=== PATIENT | female | born 1960 | race Caucasian/White ===

== ENCOUNTER 2016-07-29 12:23 | Emergency (ER) | payer SELFPAY ==
[~2016-07-29] VITALS: Ht 170.2 cm; Wt 80.0 kg
[~2016-07-29 12:23] MED LIST: ASPI-515 PO; DIAZ10TA PO; DIAZ10TA4 PO; GABA300C10 PO; INSU100V10; INSU100V8 SQ; METF100010 PO; METH2.5T; MULT-709 PO
[2016-07-29] MEDS ORDERED: ONDANSETRON 2MG/ML, 2ML IVPush ONE (13:00)
[2016-07-29] MEDS ORDERED: SODIUM CHLORIDE FLUSH 10ML SYR IVF ONE (13:00)
[2016-07-29] MEDS ORDERED: SODIUM CHLORIDE 0.9% 1,000ML IVBOLUS ONE ×2 (13:00→15:00)
[2016-07-29 13:02] LABS: PH, VENOUS 7.384 pH (7.320-7.420)
[2016-07-29] MEDS ORDERED: MORPHINE SULFATE 4 MG/ML, 1ML ONE ×2 (13:13→14:21)
[2016-07-29] MEDS ORDERED: ONDANSETRON 2MG/ML, 2ML ONE (13:13)
[2016-07-29 13:16] LABS: ASPARTATE AMINO TRANSFERASE 22 U/L (15-37); BLOOD UREA NITROGEN 38 mg/dL (7-18)
[2016-07-29] MEDS: MORPHINE SULFATE 4 MG/ML, 1ML IVPush PRN ×2 (13:17→14:47)
[2016-07-29] MEDS ORDERED: POTASSIUM CHLORIDE 20 MEQ TAB.ER.PRT PO ONE (15:30)
[2016-07-29 16:33] VITALS: BP 125/68
== END 2016-07-29 17:02 | disposition home or self-care (01) ==
LOC: ED 12:41
DX: L03.115 Cellulitis of right lower limb (principal); E10.65 Type 1 diabetes mellitus with hyperglycemia; E10.42 Type 1 diabetes mellitus with diabetic polyneuropathy; I25.10 Atherosclerotic heart disease of native coronary artery without angina pectoris; I10 Essential (primary) hypertension
CPT/HCPCS: 36415; 70450; 72125; 73630; 80053; 81001; 82010; 82803; 85025; 87077; 87086; 87186; 96361; 96374; 96375; 96376; 99285; J2405; J7030

== ENCOUNTER 2016-09-04 11:34 | Emergency (ER) | payer SELFPAY ==
[~2016-09-04] VITALS: Ht 170.2 cm; Wt 70.0 kg
[2016-09-04] MEDS ORDERED: MORPHINE SULFATE 4 MG/ML, 1ML IVPush PRN (12:30)
[2016-09-04] MEDS ORDERED: SODIUM CHLORIDE 0.9% 1,000ML IVBOLUS ONE (12:30)
[2016-09-04] MEDS ORDERED: ONDANSETRON 2MG/ML, 2ML IVPush ONE (12:30)
[2016-09-04] MEDS ORDERED: SODIUM CHLORIDE FLUSH 10ML SYR IVF ONE (12:30)
[2016-09-04 12:42] LABS: ASPARTATE AMINO TRANSFERASE 10 U/L (15-37); BLOOD UREA NITROGEN 37 mg/dL (7-18)
[2016-09-04 12:48] LABS: IS PT STATUS REG ER OR PRE ER? YES
[2016-09-04] MEDS ORDERED: ONDANSETRON 2MG/ML, 2ML ONE (12:59)
[2016-09-04] MEDS ORDERED: MORPHINE SULFATE 4 MG/ML, 1ML ONE (12:59)
[2016-09-04 14:19] VITALS: BP 137/79
== END 2016-09-04 14:22 | disposition home or self-care (01) ==
LOC: ED 12:14
DX: M25.511 Pain in right shoulder (principal); R07.89 Other chest pain; N30.90 Cystitis, unspecified without hematuria; I10 Essential (primary) hypertension; E11.9 Type 2 diabetes mellitus without complications
CPT/HCPCS: 36415; 74022; 80053; 81001; 83690; 84484; 85025; 87077; 87086; 87147; 87186; 93005; 96361; 96374; 96375; 99285; J2405; J7030

== ENCOUNTER 2016-09-10 10:55 | Inpatient (IN) | payer SELFPAY ==
[~2016-09-10] VITALS: Ht 170.2 cm; Wt 73.3 kg
[2016-09-10] MEDS ORDERED: SODIUM CHLORIDE 0.9% 1,000ML IVBOLUS ONE (12:00)
[2016-09-10] MEDS ORDERED: SODIUM CHLORIDE FLUSH 10ML SYR IVF ONE (12:00)
[2016-09-10 12:03] LABS: ASPARTATE AMINO TRANSFERASE 10 U/L (15-37); BLOOD UREA NITROGEN 34 mg/dL (7-18)
[2016-09-10 12:10] LABS: IS PT STATUS REG ER OR PRE ER? YES
[2016-09-10] MEDS ORDERED: MORPHINE SULFATE 4 MG/ML, 1ML ONE (12:24)
[2016-09-10] MEDS ORDERED: MORPHINE SULFATE 4 MG/ML, 1ML IVPush ONE (13:30)
[2016-09-10] MEDS ORDERED: OMNIPAQUE 350 MG/ML, 100ML BOTTLE ONE (14:17)
[2016-09-10 15:53] VITALS: BP 101/67
== END 2016-09-10 16:40 | disposition left against medical advice (07) | DRG 312 ==
LOC: ED 12:41 → EDIP 14:59 → 5SO 15:45
PROVIDERS: ADMIT Internal Medicine; ATTEND Internal Medicine
DX: R55 Syncope and collapse (principal); E86.0 Dehydration; M25.511 Pain in right shoulder; Z53.21 Procedure and treatment not carried out due to patient leaving prior to being seen by health care provider
CPT/HCPCS: 36415; 71010; 71275; 80053; 81001; 84484; 85025; 85610; 85730; 87086; 93005; 96361; 96374; Q9967; J7030

== ENCOUNTER 2016-09-15 09:51 | Emergency (ER) | payer SELFPAY ==
[~2016-09-15] VITALS: Ht 170.2 cm; Wt 75.0 kg
[2016-09-15 09:59] VITALS: BP 148/75
== END 2016-09-15 10:33 | disposition home or self-care (01) ==
LOC: ED 10:02
DX: S23.3XXA Sprain of ligaments of thoracic spine, initial encounter (principal); E11.9 Type 2 diabetes mellitus without complications; Z95.1 Presence of aortocoronary bypass graft; V43.52XA Car driver injured in collision with other type car in traffic accident, initial encounter; Y93.89 Activity, other specified; Y99.8 Other external cause status; Y92.488 Other paved roadways as the place of occurrence of the external cause
CPT/HCPCS: 99283

== ENCOUNTER 2016-09-23 10:26 | Emergency (ER) | payer OTHER ==
[2016-09-23] MEDS ORDERED: HYDROcodone/APAP 5/325 TABLET ONE (12:48)
[2016-09-23] MEDS ORDERED: HYDROcodone/APAP 5/325 TABLET PO ONE (13:00)
[2016-09-23 13:03] LABS: ASPARTATE AMINO TRANSFERASE 15 U/L (15-37); BLOOD UREA NITROGEN 34 mg/dL (7-18)
[2016-09-23 14:32] VITALS: BP 101/70
== END 2016-09-23 14:34 | disposition home or self-care (01) ==
LOC: ED 13:01
DX: R10.32 Left lower quadrant pain (principal); R10.12 Left upper quadrant pain; N30.00 Acute cystitis without hematuria; I25.10 Atherosclerotic heart disease of native coronary artery without angina pectoris; E11.65 Type 2 diabetes mellitus with hyperglycemia; F17.200 Nicotine dependence, unspecified, uncomplicated; Z95.1 Presence of aortocoronary bypass graft
CPT/HCPCS: 36415; 74022; 80053; 81001; 83605; 83690; 85025; 87086; 93005; 99285

== ENCOUNTER 2016-09-28 09:03 | Emergency (ER) | payer OTHER ==
[~2016-09-28] VITALS: Ht 170.2 cm; Wt 70.0 kg
[2016-09-28] MEDS ORDERED: SODIUM CHLORIDE 0.9% 1,000 ML IV ONE (09:33)
[2016-09-28] MEDS ORDERED: ONDANSETRON 2MG/ML, 2ML IVPush ONE (10:00)
[2016-09-28] MEDS ORDERED: SODIUM CHLORIDE FLUSH 10ML SYR IVF ONE (10:00)
[2016-09-28] MEDS ORDERED: HYDROmorphone 1 MG/ML, 1ML IVPush PRN (10:00)
[2016-09-28 10:03] LABS: HEMATOCRIT 36.5 % (34.6-47.8); HEMOGLOBIN 12.4 g/dL (11.7-16.4); WHITE BLOOD COUNT 8.4 x10^3/uL (3.4-10)
[2016-09-28] MEDS ORDERED: ONDANSETRON 2MG/ML, 2ML ONE (10:09)
[2016-09-28] MEDS ORDERED: HYDROmorphone 1 MG/ML, 1ML ONE (10:09)
[2016-09-28 10:43] LABS: ASPARTATE AMINO TRANSFERASE 13 U/L (15-37); BLOOD UREA NITROGEN 27 mg/dL (7-18)
[2016-09-28 10:48] VITALS: BP 110/89
== END 2016-09-28 12:29 | disposition home or self-care (01) ==
LOC: ED 09:47
DX: G89.29 Other chronic pain (principal); R53.1 Weakness; R26.2 Difficulty in walking, not elsewhere classified; R29.6 Repeated falls; E11.9 Type 2 diabetes mellitus without complications; I25.10 Atherosclerotic heart disease of native coronary artery without angina pectoris
CPT/HCPCS: 36415; 70450; 80053; 82010; 82550; 83605; 85025; 93005; 96361; 96374; 96375; 99285; J1170; J2405; J7030

== ENCOUNTER 2017-02-01 17:00 | Emergency (ER) | payer OTHER ==
[~2017-02-01] VITALS: Ht 170.2 cm; Wt 73.0 kg
[~2017-02-01 17:00] MED LIST changes: -INSU100V10; +INSU100V11
[2017-02-01] MEDS ORDERED: SODIUM CHLORIDE 0.9% 1,000ML IVBOLUS ONE (17:30)
[2017-02-01] MEDS ORDERED: LOPERAMIDE 2 MG CAPSULE PO ONE (17:30)
[2017-02-01] MEDS ORDERED: MAALOX/HYOSCYAMINE/LIDOCAINE 45 ML BTL PO ONE (17:30)
[2017-02-01] MEDS ORDERED: SODIUM CHLORIDE FLUSH 10ML SYR IVF ONE (17:30)
[2017-02-01] MEDS ORDERED: MAALOX/HYOSCYAMINE/LIDOCAINE 45 ML BTL ONE (17:31)
[2017-02-01] MEDS ORDERED: MORPHINE SULFATE 4 MG/ML, 1ML ONE (17:31)
[2017-02-01] MEDS ORDERED: LOPERAMIDE 2 MG CAPSULE ONE ×2 (17:31→17:39)
[2017-02-01] MEDS: MORPHINE SULFATE 4 MG/ML, 1ML IVPush PRN ×2 (17:34→18:20)
[2017-02-01 17:53] LABS: HEMATOCRIT 34.7 % (34.6-47.8); WHITE BLOOD COUNT 9.5 x10^3/uL (3.4-10)
[2017-02-01 18:04] LABS: ASPARTATE AMINO TRANSFERASE 9 U/L (15-37); BLOOD UREA NITROGEN 20 mg/dL (7-18)
[2017-02-01] MEDS ORDERED: morphine SULFATE 10 MG/ML, 1ML ONE (18:16)
[2017-02-01 18:57] VITALS: BP 112/58
[2017-02-01] MEDS ORDERED: OXYcodone/APAP 5/325MG TABLET ONE (19:58)
[2017-02-01] MEDS ORDERED: OXYcodone/APAP 5/325MG TABLET PO ONE (20:00)
== END 2017-02-01 20:19 | disposition home or self-care (01) ==
LOC: ED 19:26
DX: S16.1XXA Strain of muscle, fascia and tendon at neck level, initial encounter (principal); R19.7 Diarrhea, unspecified; I95.9 Hypotension, unspecified; I25.10 Atherosclerotic heart disease of native coronary artery without angina pectoris; E11.42 Type 2 diabetes mellitus with diabetic polyneuropathy
CPT/HCPCS: 36415; 70450; 72125; 80053; 83690; 85025; 96361; 96374; 96376; 99285; J7030

== ENCOUNTER 2017-02-06 13:52 | Emergency (ER) | payer OTHER ==
[~2017-02-06] VITALS: Ht 170.2 cm; Wt 72.9 kg
[2017-02-06] MEDS ORDERED: SODIUM CHLORIDE 0.9% 1,000ML IVBOLUS ONE (14:30)
[2017-02-06] MEDS ORDERED: SODIUM CHLORIDE FLUSH 10ML SYR IVF ONE (14:30)
[2017-02-06 14:44] LABS: PH, VENOUS 7.378 pH (7.320-7.420)
[2017-02-06 14:47] LABS: HEMATOCRIT 39.4 % (34.6-47.8); HEMOGLOBIN 13.5 g/dL (11.7-16.4); WHITE BLOOD COUNT 10.1 x10^3/uL (3.4-10)
[2017-02-06 14:58] LABS: ASPARTATE AMINO TRANSFERASE 22 U/L (15-37); BLOOD UREA NITROGEN 11 mg/dL (7-18)
[2017-02-06 16:24] VITALS: BP 143/83
== END 2017-02-06 17:02 | disposition left against medical advice (07) ==
LOC: ED 16:56
DX: G89.29 Other chronic pain (principal); M54.2 Cervicalgia; E11.65 Type 2 diabetes mellitus with hyperglycemia; F41.9 Anxiety disorder, unspecified; I25.10 Atherosclerotic heart disease of native coronary artery without angina pectoris; M72.0 Palmar fascial fibromatosis [Dupuytren]; Z95.1 Presence of aortocoronary bypass graft
CPT/HCPCS: 36415; 71010; 80053; 82010; 82803; 85025; 93005; 96360; 96361; 99285; J7030

== ENCOUNTER 2017-04-24 06:40 | Emergency (ER) | payer SELFPAY ==
[~2017-04-24] VITALS: Ht 170.2 cm; Wt 77.5 kg
[2017-04-24] MEDS ORDERED: IBUPROFEN 200 MG TABLET PO ONE (07:00)
[2017-04-24] MEDS ORDERED: IBUPROFEN 200 MG TABLET ONE (07:05)
[2017-04-24] MEDS ORDERED: HYDROmorphone 2 MG/ML, 1ML ONE (08:50)
[2017-04-24 08:56] VITALS: BP 125/81
[2017-04-24] MEDS ORDERED: HYDROmorphone 1 MG/ML, 1ML IM ONE (09:00)
== END 2017-04-24 09:31 | disposition home or self-care (01) ==
LOC: ED 07:13
DX: S30.0XXA Contusion of lower back and pelvis, initial encounter (principal); E11.9 Type 2 diabetes mellitus without complications; F41.9 Anxiety disorder, unspecified; I25.10 Atherosclerotic heart disease of native coronary artery without angina pectoris; Z95.1 Presence of aortocoronary bypass graft; W19.XXXA Unspecified fall, initial encounter; Y93.89 Activity, other specified; Y99.8 Other external cause status; Y92.099 Unspecified place in other non-institutional residence as the place of occurrence of the external cause
CPT/HCPCS: 72220; 96372; 99284; J1170

== ENCOUNTER 2017-04-27 11:20 | Emergency (ER) | payer SELFPAY ==
[~2017-04-27] VITALS: Ht 170.2 cm; Wt 70.0 kg
[2017-04-27] MEDS ORDERED: ONDANSETRON 2MG/ML, 2ML ONE (12:10)
[2017-04-27] MEDS ORDERED: MORPHINE SULFATE 4 MG/ML, 1ML ONE ×2 (12:11→12:52)
[2017-04-27] MEDS: MORPHINE SULFATE 4 MG/ML, 1ML IVPush PRN ×2 (12:15→13:00)
[2017-04-27 12:25] LABS: BASOPHILS # (AUTO) 0.02 x10^3/uL (0-0.1); BASOPHILS % (AUTO) 0 % (0-1); EOSINOPHILS # (AUTO) 0.24 x10^3/uL (0-0.4); EOSINOPHILS % (AUTO) 3 % (1-7); LYMPHOCYTES # (AUTO) 2.07 x10^3/uL (1-3.4); LYMPHOCYTES % (AUTO) 22 % (22-44); MD NO; MEAN CORPUSCULAR HGB CONC 34.6 g/dL (32.4-35.8); MEAN CORPUSCULAR VOLUME 89.7 fL (80-100); MEAN PLATELET VOLUME 9.8 fL (7.4-10.4); MONOCYTES # (AUTO) 0.55 x10^3/uL (0.2-0.8); MONOCYTES % (AUTO) 6 % (2-9); NEUTROPHILS # (AUTO) 6.35 x10^3/uL (1.8-6.8); NEUTROPHILS % (AUTO) 69 % (42-75); PLATELET COUNT 217 x10^3/uL (130-400); RED BLOOD COUNT 4.67 x10^6/uL (3.82-5.3); RED CELL DISTRIBUTION WIDTH 13.2 % (9.6-15.2)
[2017-04-27 12:29] LABS: CLUE CELLS NONE SEEN (NONE SEEN); WET PREP WBCS MANY (FEW)
[2017-04-27] MEDS ORDERED: ONDANSETRON 2MG/ML, 2ML IVPush ONE (12:30)
[2017-04-27] MEDS ORDERED: SODIUM CHLORIDE 0.9% 1,000ML IVBOLUS ONE (12:30)
[2017-04-27] MEDS ORDERED: SODIUM CHLORIDE FLUSH 10ML SYR IVF ONE (12:30)
[2017-04-27 12:34] LABS: ALBUMIN 3.6 g/dL (3.4-5.0); ANION GAP 6 mmol/L (5-15); CALCIUM 9.5 mg/dL (8.5-10.1); CHLORIDE 104 mmol/L (98-107); CREATININE 0.81 mg/dL (0.55-1.02)
[2017-04-27 13:15] LABS: MICROSCOPIC AUTO
[2017-04-27 13:17] LABS: CULTURE INDICATED? NO
[2017-04-27] MEDS ORDERED: OMNIPAQUE 350 MG/ML, 100ML BOTTLE ONE (13:34)
[2017-04-27 14:39] VITALS: BP 127/70
== END 2017-04-27 14:41 | disposition home or self-care (01) ==
LOC: ED 12:23
DX: B37.3 Candidiasis of vulva and vagina (principal); R10.30 Lower abdominal pain, unspecified; E11.9 Type 2 diabetes mellitus without complications
CPT/HCPCS: 36415; 74177; 80048; 81001; 82040; 85025; 87210; 87491; 87591; 87808; 96361; 96374; 96375; 96376; 99285; J2405; J7030; Q9967

== ENCOUNTER 2017-05-03 10:36 | Inpatient (IN) | payer OTHER ==
[~2017-05-03] VITALS: Ht 170.2 cm; Wt 78.9 kg
[~2017-05-03 10:36] MED LIST changes: -INSU100V11; +INSU100V11 SQ-INSULIN
[2017-05-03] MEDS ORDERED: ONDANSETRON 2MG/ML, 2ML ONE (11:26)
[2017-05-03] MEDS ORDERED: SODIUM CHLORIDE 0.9% 1,000ML IVBOLUS ONE ×3 (11:30→19:30)
[2017-05-03] MEDS ORDERED: ONDANSETRON 2MG/ML, 2ML IVPush ONE (11:30)
[2017-05-03 11:51] LABS: PH, VENOUS 7.411 pH (7.320-7.420)
[2017-05-03 11:53] LABS: MEAN CORPUSCULAR HGB CONC 33.7 g/dL (32.4-35.8); MEAN CORPUSCULAR VOLUME 89.1 fL (80-100); MEAN PLATELET VOLUME 9.1 fL (7.4-10.4); PLATELET COUNT 287 x10^3/uL (130-400); RED BLOOD COUNT 4.53 x10^6/uL (3.82-5.3); RED CELL DISTRIBUTION WIDTH 12.9 % (9.6-15.2)
[2017-05-03 11:56] LABS: FIO2 ROOM AIR %
[2017-05-03 12:00] LABS: ALBUMIN 3.3 g/dL (3.4-5.0); ANION GAP 14 mmol/L (5-15); CALCIUM 8.3 mg/dL (8.5-10.1); CHLORIDE 88 mmol/L (98-107)
[2017-05-03 12:03] LABS: ALANINE AMINOTRANSFERASE 13 U/L (12-78); ALKALINE PHOSPHATASE 136 U/L (45-117); BILIRUBIN,TOTAL 0.8 mg/dL (0.2-1.0); CREATININE 1.44 mg/dL (0.55-1.02); TOTAL PROTEIN 6.7 g/dL (6.4-8.2)
[2017-05-03 12:07] LABS: MD YES
[2017-05-03 12:10] LABS: BAND#(MANUAL) 1.02 x10^3/uL; BANDS%(MANUAL) 5 % (0-7); LYMPH#(MANUAL) 1.63 x10^3/uL (1-3.4); LYMPHS% (MANUAL) 8 % (22-44); MONOS#(MANUAL) 1.43 x10^3/uL (0.3-2.7); MONOS% (MANUAL) 7 % (2-9); SEG#(MANUAL) 16.32 x10^3/uL (1.8-6.8); SEGS% (MANUAL) 80 % (42-75)
[2017-05-03 12:11] LABS: <PLATELET ESTIMATE> ADEQUATE; <RBC MORPHOLOGY> NORMAL; LARGE PLATELETS 1+
[2017-05-03 13:24] LABS: ACETONE, SERUM Large (80mg/dL) mg/dL (Negative)
[2017-05-03] MEDS: SODIUM CHLORIDE 0.9% 1,000 ML IV SCH ×2 (14:10→22:50)
[2017-05-03] MEDS ORDERED: LABETALOL 5MG/ML, 20ML IVPush PRN (14:30)
[2017-05-03] MEDS ORDERED: BISACODYL 10 MG SUPP PR PRN (14:30)
[2017-05-03] MEDS ORDERED: ONDANSETRON 2MG/ML, 2ML IVPush PRN (14:30)
[2017-05-03] MEDS ORDERED: hydrALAzine 20 MG/ML, 1ML IVPush PRN (14:30)
[2017-05-03] MEDS ORDERED: morphine SULFATE 10 MG/ML, 1ML IVPush PRN (14:30)
[2017-05-03 14:57] LABS: FREE T4 (FREE THYROXINE) 1.19 ng/dL (0.76-1.46); THYROID STIMULATING HORMONE 0.206 mIU/L (0.358-3.740)
[2017-05-03] MEDS ORDERED: INSULIN REGULAR 100 UNITS/ML, 3ML VIAL ONE (15:19)
[2017-05-03 15:28] LABS: HEMOGLOBIN A1C 12.2 % (4.2-6.3)
[2017-05-03] MEDS ORDERED: INSULIN REGULAR 100 UNITS/ML, 3ML VIAL IVPush ONE (15:30)
[2017-05-03] MEDS: INSULIN REGULAR 100 UNITS/ML, 3ML VIAL SQ-INSULIN SCH ×2 (16:00→22:50)
[2017-05-03] MEDS: PANTOPRAZOLE 80 MG in SODIUM CHLORIDE 0.9% 100 ML IV SCH (18:47)
[2017-05-03 18:51] VITALS: BP 82/54
[2017-05-03 20:34] VITALS: BP 100/62
[2017-05-04] VITALS (8 sets, daily range): BP systolic 58–136; BP diastolic 33–80
[2017-05-04] MEDS: PANTOPRAZOLE 80 MG in SODIUM CHLORIDE 0.9% 100 ML IV SCH ×2 (04:52→16:03)
[2017-05-04 05:39] LABS: ANION GAP 7 mmol/L (5-15); CALCIUM 7.7 mg/dL (8.5-10.1); CHLORIDE 102 mmol/L (98-107); CHOLESTEROL, TOTAL 163 mg/dL (140-239); CREATININE 1.17 mg/dL (0.55-1.02); TRIGLYCERIDES 154 mg/dL (50-200); VLDL CHOLESTEROL 31 mg/dL (0-25)
[2017-05-04 05:41] LABS: CHOL/HDL RATIO 4.1; HDL CHOL % 25 % (28-40); HDL CHOLESTEROL (DIRECT) 40 mg/dL (40-60); LDL CHOLESTEROL,CALCULATED 92 mg/dL (54-169); LDL/HDL RATIO 2.3 (0.5-3.0)
[2017-05-04 05:47] LABS: MEAN CORPUSCULAR HEMOGLOBIN 30.9 pg (27.0-34.8); MEAN CORPUSCULAR HGB CONC 34.5 g/dL (32.4-35.8); MEAN CORPUSCULAR VOLUME 89.5 fL (80-100); MEAN PLATELET VOLUME 8.6 fL (7.4-10.4); PLATELET COUNT 259 x10^3/uL (130-400); RED CELL DISTRIBUTION WIDTH 13.3 % (9.6-15.2)
[2017-05-04 06:16] LABS: BASOPHILS % (AUTO) 0 % (0-1); EOSINOPHILS # (AUTO) 0.08 x10^3/uL (0-0.4); EOSINOPHILS % (AUTO) 0 % (1-7); LYMPHOCYTES # (AUTO) 1.91 x10^3/uL (1-3.4); LYMPHOCYTES % (AUTO) 10 % (22-44); MONOCYTES # (AUTO) 1.68 x10^3/uL (0.2-0.8); MONOCYTES % (AUTO) 9 % (2-9); NEUTROPHILS # (AUTO) 14.73 x10^3/uL (1.8-6.8); NEUTROPHILS % (AUTO) 80 % (42-75)
[2017-05-04 06:17] LABS: MD SCAN
[2017-05-04] MEDS: SODIUM CHLORIDE 0.9% 1,000 ML IV SCH ×2 (06:19→20:06)
[2017-05-04] MEDS ORDERED: MIDAZOLAM 1 MG/ML, 5ML ONE (07:21)
[2017-05-04] MEDS ORDERED: FENTANYL PF 100 MCG/2ML ONE (07:21)
[2017-05-04] MEDS ORDERED: PANTOPRAZOLE 40 MG IV IVPush SCH (07:30)
[2017-05-04] MEDS ORDERED: EPINEPHRINE SYRINGE 0.1 MG/ML, 10ML ONE (08:37)
[2017-05-04] MEDS: POTASSIUM CHLORIDE 20 MEQ TAB.ER.PRT PO SCH ×2 (10:03→17:31)
[2017-05-04] MEDS: INSULIN REGULAR 100 UNITS/ML, 3ML VIAL SQ-INSULIN SCH ×4 (10:03→19:52)
[2017-05-04] MEDS: MISOPROSTOL 100 MCG TABLET PO SCH ×2 (10:09→17:57)
[2017-05-04 10:14] LABS: TOTAL IRON BINDING CAPACITY 278 mcg/dL (250-450)
[2017-05-04 10:15] LABS: % IRON SATURATION 12 % (20-55); IRON LEVEL 33 mcg/dL (50-170)
[2017-05-04] MEDS ORDERED: OXYcodone/APAP 5/325MG TABLET ONE (11:49)
[2017-05-04] MEDS: SUCRALFATE 1 GM/10 ML UDC PO SCH ×3 (12:08→21:54)
[2017-05-04] MEDS: IRON SUCROSE COMPLEX 100MG/5ML IV SCH (12:08)
[2017-05-04] MEDS: OXYcodone/APAP 5/325MG TABLET PO PRN ×2 (12:09→17:53)
[2017-05-04] MEDS ORDERED: MORPHINE SULFATE 4 MG/ML, 1ML ONE (15:14)
[2017-05-04] MEDS ORDERED: MAGNESIUM SULFATE PMX 2GM/50ML 50 ML IV ONE (15:30)
[2017-05-04] MEDS ORDERED: MORPHINE SULFATE 4 MG/ML, 1ML IVPush ONE (15:30)
[2017-05-04] MEDS: TRAZODONE 50MG TABLET PO PRN (20:02)
[2017-05-05] MEDS: OXYcodone/APAP 5/325MG TABLET PO PRN ×5 (00:03→20:51)
[2017-05-05] MEDS: PANTOPRAZOLE 80 MG in SODIUM CHLORIDE 0.9% 100 ML IV SCH (02:16)
[2017-05-05] MEDS: SODIUM CHLORIDE 0.9% 1,000 ML IV SCH (02:17)
[2017-05-05 03:36] VITALS: BP 109/67
[2017-05-05 05:51] LABS: ANION GAP 9 mmol/L (5-15); CALCIUM 7.2 mg/dL (8.5-10.1); CHLORIDE 108 mmol/L (98-107)
[2017-05-05 05:54] LABS: CREATININE 0.62 mg/dL (0.55-1.02)
[2017-05-05 05:56] LABS: BASOPHILS # (AUTO) 0.02 x10^3/uL (0-0.1); BASOPHILS % (AUTO) 0 % (0-1); EOSINOPHILS # (AUTO) 0.07 x10^3/uL (0-0.4); EOSINOPHILS % (AUTO) 1 % (1-7); LYMPHOCYTES # (AUTO) 1.44 x10^3/uL (1-3.4); LYMPHOCYTES % (AUTO) 11 % (22-44); MD NO; MEAN CORPUSCULAR HEMOGLOBIN 30.4 pg (27.0-34.8); MEAN CORPUSCULAR HGB CONC 34.1 g/dL (32.4-35.8); MEAN CORPUSCULAR VOLUME 89.2 fL (80-100); MEAN PLATELET VOLUME 8.8 fL (7.4-10.4); MONOCYTES # (AUTO) 1.09 x10^3/uL (0.2-0.8); MONOCYTES % (AUTO) 8 % (2-9); NEUTROPHILS # (AUTO) 10.67 x10^3/uL (1.8-6.8); NEUTROPHILS % (AUTO) 80 % (42-75); PLATELET COUNT 195 x10^3/uL (130-400); RED BLOOD COUNT 3.22 x10^6/uL (3.82-5.3); RED CELL DISTRIBUTION WIDTH 12.9 % (9.6-15.2)
[2017-05-05 06:27] VITALS: BP 117/67
[2017-05-05 06:31] LABS: CULTURE INDICATED? YES; MICROSCOPIC INDICATED
[2017-05-05] MEDS ORDERED: POTASSIUM CHLORIDE 20 MEQ TAB.ER.PRT PO ONE (07:30)
[2017-05-05] MEDS ORDERED: MISO100T PO (08:02)
[2017-05-05] MEDS ORDERED: SUCR1TAB33 PO (08:02)
[2017-05-05] MEDS ORDERED: PANT40TA5 PO (08:02)
[2017-05-05] MEDS ORDERED: FOSFOMYCIN 3 GM PACKET PO ONE (08:30)
[2017-05-05] MEDS: SUCRALFATE 1 GM/10 ML UDC PO SCH ×4 (09:18→20:50)
[2017-05-05] MEDS: PANTOPROZOLE 40MG TABLET PO SCH (09:19)
[2017-05-05] MEDS: MISOPROSTOL 100 MCG TABLET PO SCH ×2 (09:21→18:37)
[2017-05-05] MEDS: IRON SUCROSE COMPLEX 100MG/5ML IV SCH (09:23)
[2017-05-05] MEDS: INSULIN REGULAR 100 UNITS/ML, 3ML VIAL SQ-INSULIN SCH ×4 (09:23→21:00)
[2017-05-05 15:08] VITALS: BP 108/66
[2017-05-05] MEDS ORDERED: DIAZEPAM INTENSOL 5 MG/ML PO PRN (16:30)
[2017-05-05] MEDS ORDERED: DIAZEPAM 5 MG TABLET ONE (17:27)
[2017-05-05] MEDS: DIAZEPAM 5 MG TABLET PO PRN (17:31)
[2017-05-05 20:18] VITALS: BP 148/76
[2017-05-05] MEDS ORDERED: OXYcodone/APAP 5/325MG TABLET ONE (20:43)
[2017-05-05] MEDS: GABAPENTIN 300 MG CAPSULE PO SCH (20:51)
[2017-05-05] MEDS: TRAZODONE 50MG TABLET PO PRN (20:51)
[2017-05-05] MEDS ORDERED: PIPERONYL BUTOXIDE/PYRETHRINS SHAMPOO TP SCH (21:30)
[2017-05-06] MEDS ORDERED: OXYcodone/APAP 5/325MG TABLET PO PRN
[2017-05-06 01:44] VITALS: BP 133/81
[2017-05-06] MEDS: OXYcodone/APAP 5/325MG TABLET PO PRN ×3 (02:09→17:42)
[2017-05-06] MEDS: GABAPENTIN 300 MG CAPSULE PO SCH ×4 (06:33→21:02)
[2017-05-06 07:50] VITALS: BP 100/65
[2017-05-06] MEDS: IRON SUCROSE COMPLEX 100MG/5ML IV SCH (08:08)
[2017-05-06] MEDS: SUCRALFATE 1 GM/10 ML UDC PO SCH ×4 (08:08→21:02)
[2017-05-06] MEDS: PANTOPROZOLE 40MG TABLET PO SCH (08:08)
[2017-05-06] MEDS: MISOPROSTOL 100 MCG TABLET PO SCH ×2 (08:08→17:42)
[2017-05-06] MEDS: INSULIN REGULAR 100 UNITS/ML, 3ML VIAL SQ-INSULIN SCH ×4 (08:18→21:02)
[2017-05-06 10:20] LABS: ANION GAP 5 mmol/L (5-15); CALCIUM 7.8 mg/dL (8.5-10.1); CHLORIDE 105 mmol/L (98-107)
[2017-05-06 10:21] LABS: BASOPHILS # (AUTO) 0.02 x10^3/uL (0-0.1); BASOPHILS % (AUTO) 0 % (0-1); CREATININE 0.85 mg/dL (0.55-1.02); EOSINOPHILS # (AUTO) 0.12 x10^3/uL (0-0.4); EOSINOPHILS % (AUTO) 1 % (1-7); LYMPHOCYTES # (AUTO) 1.72 x10^3/uL (1-3.4); LYMPHOCYTES % (AUTO) 20 % (22-44); MD NO; MEAN CORPUSCULAR HEMOGLOBIN 30.2 pg (27.0-34.8); MEAN CORPUSCULAR HGB CONC 33.9 g/dL (32.4-35.8); MEAN PLATELET VOLUME 8.8 fL (7.4-10.4); MONOCYTES # (AUTO) 0.54 x10^3/uL (0.2-0.8); MONOCYTES % (AUTO) 6 % (2-9); NEUTROPHILS # (AUTO) 6.15 x10^3/uL (1.8-6.8); NEUTROPHILS % (AUTO) 72 % (42-75); PLATELET COUNT 197 x10^3/uL (130-400); RED BLOOD COUNT 3.53 x10^6/uL (3.82-5.3); RED CELL DISTRIBUTION WIDTH 12.9 % (9.6-15.2)
[2017-05-06] MEDS: DIAZEPAM 5 MG TABLET PO PRN (11:22)
[2017-05-06 13:28] VITALS: BP_SYST 89; BP_SYST 91; BP_DIAS 56; BP_DIAS 57
[2017-05-06] MEDS ORDERED: DIAZEPAM 5 MG/ML, 10ML VIAL IV PRN ×2 (15:30)
[2017-05-06 19:49] VITALS: BP 99/61
[2017-05-07 04:00] VITALS: BP 142/80
[2017-05-07] MEDS: OXYcodone/APAP 5/325MG TABLET PO PRN ×3 (05:26→19:58)
[2017-05-07] MEDS: GABAPENTIN 300 MG CAPSULE PO SCH ×5 (05:26→19:59)
[2017-05-07] MEDS: INSULIN REGULAR 100 UNITS/ML, 3ML VIAL SQ-INSULIN SCH ×4 (07:00→20:02)
[2017-05-07 07:26] VITALS: BP 101/64
[2017-05-07] MEDS: SUCRALFATE 1 GM/10 ML UDC PO SCH ×4 (07:59→19:58)
[2017-05-07] MEDS: PANTOPROZOLE 40MG TABLET PO SCH (07:59)
[2017-05-07] MEDS: DIAZEPAM 5 MG TABLET PO PRN ×2 (07:59→16:29)
[2017-05-07] MEDS: IRON SUCROSE COMPLEX 100MG/5ML IV SCH (08:38)
[2017-05-07] MEDS: MISOPROSTOL 100 MCG TABLET PO SCH ×2 (08:38→18:23)
[2017-05-07 15:00] VITALS: BP 106/66
[2017-05-07 20:16] VITALS: BP 149/73
[2017-05-07] MEDS: TRAZODONE 50MG TABLET PO PRN (20:25)
[2017-05-08] MEDS: OXYcodone/APAP 5/325MG TABLET PO PRN ×2 (02:01→08:04)
[2017-05-08 02:53] VITALS: BP 98/57
[2017-05-08] MEDS: DIAZEPAM 5 MG TABLET PO PRN ×2 (02:56→10:37)
[2017-05-08] MEDS: GABAPENTIN 300 MG CAPSULE PO SCH ×2 (06:30→11:00)
[2017-05-08] MEDS: INSULIN REGULAR 100 UNITS/ML, 3ML VIAL SQ-INSULIN SCH ×2 (07:00→11:00)
[2017-05-08 07:59] VITALS: BP 149/79
[2017-05-08] MEDS: IRON SUCROSE COMPLEX 100MG/5ML IV SCH (08:04)
[2017-05-08] MEDS: PANTOPROZOLE 40MG TABLET PO SCH (08:04)
[2017-05-08] MEDS: SUCRALFATE 1 GM/10 ML UDC PO SCH ×2 (08:04→11:00)
[2017-05-08] MEDS: MISOPROSTOL 100 MCG TABLET PO SCH (08:04)
== END 2017-05-08 11:55 | disposition home or self-care (01) | DRG 380 ==
LOC: ED 13:12 → EDIP 13:17 → 4WST 18:08 → DCLOUNGE 05-08 11:50
PROVIDERS: ADMIT Hospitalist; ATTEND Hospitalist
PROC: 3E0G8GC Introduction of Other Therapeutic Substance into Upper GI, Via Natural or Artificial Opening Endoscopic (ICD-10-PCS; 2017-05-04)
PROC: 0DB68ZX Excision of Stomach, Via Natural or Artificial Opening Endoscopic, Diagnostic (ICD-10-PCS; 2017-05-04)
PROC: 0W3P8ZZ Control Bleeding in Gastrointestinal Tract, Via Natural or Artificial Opening Endoscopic (ICD-10-PCS; principal; 2017-05-04 08:00)
DX: K22.11 Ulcer of esophagus with bleeding (principal); N17.0 Acute kidney failure with tubular necrosis; E11.43 Type 2 diabetes mellitus with diabetic autonomic (poly)neuropathy; K25.4 Chronic or unspecified gastric ulcer with hemorrhage; K31.84 Gastroparesis; I95.9 Hypotension, unspecified; E11.65 Type 2 diabetes mellitus with hyperglycemia; D62 Acute posthemorrhagic anemia; E87.1 Hypo-osmolality and hyponatremia; E86.0 Dehydration; F41.1 Generalized anxiety disorder; I25.10 Atherosclerotic heart disease of native coronary artery without angina pectoris; K29.80 Duodenitis without bleeding; B96.81 Helicobacter pylori [H. pylori] as the cause of diseases classified elsewhere; K29.90 Gastroduodenitis, unspecified, without bleeding; D72.829 Elevated white blood cell count, unspecified; K21.0 Gastro-esophageal reflux disease with esophagitis; R29.6 Repeated falls; R62.7 Adult failure to thrive; Z79.4 Long term (current) use of insulin; Z91.19 Patient's noncompliance with other medical treatment and regimen; Z91.81 History of falling; Z95.1 Presence of aortocoronary bypass graft
CPT/HCPCS: 36415; 70360; 70450; 71045; 72220; 80048; 80053; 80061; 81001; 82010; 82803; 82962; 83036; 83540; 83550; 83605; 83690; 83735; 83930; 84100; 84145; 84439; 84443; 85025; 87040; 87086; 88305; 88312; 93005; 96374; 96375; 99152; 99153; J1756; J1815; J2250; J2405; J3010; J3360; 92523-GN; C9113; J2270; J3475; J7030

== ENCOUNTER 2017-07-11 13:02 | Emergency (ER) | payer OTHER ==
[~2017-07-11] VITALS: Ht 170.2 cm; Wt 67.0 kg
[~2017-07-11 13:02] MED LIST changes: +MISO100T PO; +PANT40TA5 PO; +PANTOPRAZOLE 40 MG IV IVPush ONE; +SUCR1TAB33 PO
[2017-07-11] MEDS ORDERED: SODIUM CHLORIDE FLUSH 10ML SYR IVF ONE (13:30)
[2017-07-11] MEDS ORDERED: MAALOX/HYOSCYAMINE/LIDOCAINE 45 ML BTL PO ONE (13:30)
[2017-07-11] MEDS ORDERED: morphine SULFATE 10 MG/ML, 1ML IVPush ONE (13:30)
[2017-07-11] MEDS ORDERED: ONDANSETRON ODT 4 MG PO ONE (13:30)
[2017-07-11] MEDS ORDERED: SODIUM CHLORIDE 0.9% 1,000ML IVBOLUS ONE (13:30)
[2017-07-11] MEDS ORDERED: PANTOPRAZOLE 40 MG IV ONE (13:31)
[2017-07-11] MEDS ORDERED: MORPHINE SULFATE 4 MG/ML, 1ML ONE (13:31)
[2017-07-11] MEDS ORDERED: MAALOX/HYOSCYAMINE/LIDOCAINE 45 ML BTL ONE (13:31)
[2017-07-11] MEDS ORDERED: ONDANSETRON ODT 4 MG ONE (13:31)
[2017-07-11 13:45] LABS: BASOPHILS # (AUTO) 0.01 x10^3/uL (0-0.1); BASOPHILS % (AUTO) 0 % (0-1); EOSINOPHILS # (AUTO) 0.12 x10^3/uL (0-0.4); EOSINOPHILS % (AUTO) 1 % (1-7); LYMPHOCYTES # (AUTO) 1.51 x10^3/uL (1-3.4); LYMPHOCYTES % (AUTO) 12 % (22-44); MD NO; MEAN CORPUSCULAR HEMOGLOBIN 30.5 pg (27.0-34.8); MEAN CORPUSCULAR HGB CONC 33.8 g/dL (32.4-35.8); MEAN CORPUSCULAR VOLUME 90.3 fL (80-100); MEAN PLATELET VOLUME 8.5 fL (7.4-10.4); MONOCYTES # (AUTO) 0.68 x10^3/uL (0.2-0.8); MONOCYTES % (AUTO) 5 % (2-9); NEUTROPHILS # (AUTO) 10.67 x10^3/uL (1.8-6.8); NEUTROPHILS % (AUTO) 82 % (42-75); PLATELET COUNT 246 x10^3/uL (130-400); RED BLOOD COUNT 3.98 x10^6/uL (3.82-5.3); RED CELL DISTRIBUTION WIDTH 13.6 % (9.6-15.2)
[2017-07-11 13:53] LABS: INTERNATIONAL NORMALIZED RATIO 0.96 (0.93-1.1)
[2017-07-11 13:54] LABS: ALANINE AMINOTRANSFERASE 21 U/L (12-78); ALBUMIN 3.4 g/dL (3.4-5.0); ANION GAP 6 mmol/L (5-15); CALCIUM 9.3 mg/dL (8.5-10.1); CHLORIDE 113 mmol/L (98-107)
[2017-07-11] MEDS ORDERED: OLAN10TA9 PO (13:56)
[2017-07-11] MEDS ORDERED: DICY20TA3 PO (13:56)
[2017-07-11] MEDS ORDERED: BLOOD PRESSURE MED (13:56)
[2017-07-11] MEDS ORDERED: ACET325T14 PO (13:56)
[2017-07-11] MEDS ORDERED: PROM12.553 PO (13:56)
[2017-07-11] MEDS ORDERED: LOPE2TAB28 PO (13:56)
[2017-07-11 13:57] LABS: ALKALINE PHOSPHATASE 113 U/L (45-117); BILIRUBIN,TOTAL 0.4 mg/dL (0.2-1.0)
[2017-07-11 14:01] LABS: TROPONIN I < 0.015 ng/mL (0.000-0.045)
[2017-07-11 15:16] VITALS: BP 98/54
== END 2017-07-11 15:47 | disposition home or self-care (01) ==
LOC: ED 13:15
DX: R11.2 Nausea with vomiting, unspecified (principal); R19.7 Diarrhea, unspecified; E86.0 Dehydration; I25.810 Atherosclerosis of coronary artery bypass graft(s) without angina pectoris; E11.9 Type 2 diabetes mellitus without complications; R79.1 Abnormal coagulation profile
CPT/HCPCS: 36415; 71045; 80053; 83690; 84484; 85025; 85610; 85730; 93005; 96361; 96374; 96375; 99285; C9113; J2270; J7030; Q0162